=== PATIENT | male | born 1995 | race Caucasian/White ===

== ENCOUNTER 2022-05-03 16:00 | Outpatient (RCR) | payer OTHER, SELFPAY ==
--- NOTE | 2022-02-05 14:33 | HP.PTEVAL ---
Patient's Visit Information BHUPENDRA BANGURA is a 26 year old M referred to Physical Therapy by Dr. Jodie Garcia DO with a diagnosis of R Achilles tendon repair 12/09/21. Date of Evaluation: 02/05/22 Physical Therapist: Arnie Acevedo, PT, ATC - Visit Plan Frequency: 2-3x /Week Duration: 4-6 Weeks Plan: R Achilles stretching, strengthening, DTR, stick rollout, bike, and HEP - Subjective DOS: 12/09/21. Pt reports he tore his R Achilles tendon while playing rugby. Pt reports he tore his Achilles 5 weeks prior to the DOS, but had to wait until then to have the procedure performed. Pt reports he was NWBing for 2 weeks after the surgery, but has been walking in a cam boot ever since. 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 Pt reports he only missed 2 weeks of work after the surgery. Pt reports n stairs at home, but notes he has to ascend them one stair at a time. Pt denies sleep difficulty at this time. Pt reports no tingling or numbness in R LE at this time. Pt notes he runs frequently and works out, and hopes to be able to return to that as soon as possible. R achilles pain is 0/10 while sitting at rest, increases to 7/10 at worst (when he was sitting on his couch) - Pain R achilles Pain Intensity (Out of 10): 0 Pain Intensity Range: 7 - Objective Neuro: B LE sensation is WNL to light touch. Girth: L ankle 57 cm, R ankle 62 cm. Observation: Incision is healed. Mild swelling still present. No signs of infection at this time. MMT: B ankles are grossly 5/5 throughout with the exception of R ankle PF 3/5 and painful. ROM: L ankle DF= 20, PF= 50 degrees: R ankle DF= 0, PF= 50 - Balance/Special Test Scores Lower Extremity Functional Score: 36 - Goals Goal 1:: Decrease R Achilles pain x 50% to aid with tolerance for ambulation Goal Time Frame: 4-6 Weeks Goal 2:: Increase R ankle DF ROM x 10 degrees to aid with restoring a more normalized gait pattern Goal Time Frame: 4-6 Weeks Goal 3:: Increase R ankle strength x 1 grade to aid with stair negotiation Goal Time Frame: 4-6 Weeks Goal 4:: I with HEP Goal Time Frame: 4-6 Weeks - Rehabilitation Potential Physical Therapy Diagnosis: Pt has R ankle pain, weakness, and limited ROM secondary to R achilles tendon rupture Rehabilitation Potential: Good - Anticipated Interventions Patient/Client Instruction: Educate patient on: Condition, Plan of Care For the Purpose of:: To improve self management Therapeutic Exercise to Include: Strength training, Endurance training, Flexibilty training, Active ROM, Dynamic Lumbar Stabilization For the Purpose of:: To decrease pain, To increase ROM, To improve muscle performance and motor function Cryotherapy (ice pack, ice massage): Yes For the Purpose of:: To decrease pain Thank you for the opportunity to evaluate your patient. For Medicare and Medicare HMO plans, please review the plan of care and approve it. It will need to be FAXED BACK to us at [phone] for Medicare purposes. For Medicare only, by signing this I certify the plan of care. Please let me know if there are questions or concerns regarding this plan of care. Physician Signature: Date:
--- NOTE | 2022-03-01 16:59 | HP.PTREVAL ---
Dr. Jodie Garcia, DO, It has been my pleasure to treat BHUPENDRA BANGURA over the last 7 visits for R Achilles tendon repair 01/09/22. Please see the progress note below for an update on the physical therapy plan of care! Subjective: Pt reports was pleased with progress at this time. Pt feels like he is improving but still lacks functional strength and ROM Objective/Function: R achilles pain ranges from 0-2/10. R ankle DF ROM is 20 degrees. R ankle MMT: PF and inv= 4-5, ever= 4/5, DF 5/5. Pt is progressing well toward Rx goals but would benefit from further strengthening at this time Plan Plan: R Achilles stretching, strengthening, DTR, stick rollout, bike, and HEP Balance/Gait/Functional tests - Balance/Special Test Scores Lower Extremity Functional Score: 45 Goals Goal 1:: Decrease R Achilles pain x 50% to aid with tolerance for ambulation Goal Time Frame: 4-6 Weeks Goal Progress: Goal Met Goal 2:: Increase R ankle DF ROM x 10 degrees to aid with restoring a more normalized gait pattern Goal Time Frame: 4-6 Weeks Goal Progress: Goal Met Goal 3:: Increase R ankle strength x 1 grade to aid with stair negotiation Goal Time Frame: 4-6 Weeks Goal Progress: Progressing Goal 4:: I with HEP Goal Time Frame: 4-6 Weeks Goal Progress: Progressing Goal 5:: Pt will ambulate 340 feet with a normal gait pattern to aid with community ambulation Goal Progress: New goal Anticipated Interventions Patient/Client Instruction: Educate patient on: Condition, Plan of Care For the Purpose of:: To improve self management Therapeutic Exercise to Include: Strength training, Endurance training, Flexibilty training, Active ROM, Dynamic Lumbar Stabilization For the Purpose of:: To decrease pain, To increase ROM, To improve muscle performance and motor function Cryotherapy (ice pack, ice massage): Yes For the Purpose of:: To decrease pain Please do not hesitate to contact me at [phone] by phone or if you have questions or concerns regarding this new plan of care! Sincerely, Arnie Acevedo, PT, ATC
--- NOTE | 2022-04-03 15:33 | HP.PTREVAL ---
Dr. Jodie Garcia, DO, It has been my pleasure to treat BHUPENDRA OZUNA BANGURA over the last 16 visits for Right Achilles tendon repair 01/09/22. Please see the progress note below for an update on the physical therapy plan of care! Subjective: Pt reports he is still unable to run or jog at this time Objective/Function: R achilles pain ranges from 0-2/10. MMT: R ankle PF and inv= 4-/5, DF and ever= 5/5. Pt is able to ambulate 340' but still displays a limp of R LE and a lack of toe off on RLE while leaving stance phase. Plan Plan: Cont with strengthening of R achilles. Begin transition to functional ex's as panfilo Balance/Gait/Functional tests - Balance/Special Test Scores Lower Extremity Functional Score: 45 Goals Goal 1:: Decrease R Achilles pain x 50% to aid with tolerance for ambulation Goal Time Frame: 4-6 Weeks Goal Progress: Goal Met Goal 2:: Increase R ankle DF ROM x 10 degrees to aid with restoring a more normalized gait pattern Goal Time Frame: 4-6 Weeks Goal Progress: Goal Met Goal 3:: Increase R ankle strength x 1 grade to aid with stair negotiation Goal Time Frame: 4-6 Weeks Goal Progress: Progressing Goal 4:: I with HEP Goal Time Frame: 4-6 Weeks Goal Progress: Goal Met Goal 5:: Pt will ambulate 340 feet with a normal gait pattern to aid with community ambulation Goal Progress: New goal Anticipated Interventions Patient/Client Instruction: Educate patient on: Condition, Plan of Care For the Purpose of:: To improve self management Therapeutic Exercise to Include: Strength training, Endurance training, Flexibilty training, Active ROM, Dynamic Lumbar Stabilization For the Purpose of:: To decrease pain, To increase ROM, To improve muscle performance and motor function Cryotherapy (ice pack, ice massage): Yes For the Purpose of:: To decrease pain Please do not hesitate to contact me at [phone] by phone or if you have questions or concerns regarding this new plan of care! Sincerely, Arnie Acevedo, PT, ATC
--- NOTE | 2022-05-03 16:33 | HP.PTDCSUM ---
It has been my pleasure to treat BHUPENDRA BANGURA referred by Dr. Jodie Garcia DO, with the diagnosis of Right Achilles tendon repair 01/09/22 for a total of 23 visit(s). Discharge Date: Please see the following information for a summary of their discharge status. Subjective: I feel a lot better today R achilles Pain Intensity (Out of 10): 0 % Improvement: 70 Objective/Function: L achilles pain ranges from 0-2/10. R ankle MMT: DF= 50#F, PF= 51 #F. R ankle ROM: 20 degrees. Pt is I with HEP. Rx goals achieved. Goal 1:: Decrease R Achilles pain x 50% to aid with tolerance for ambulation Goal Progress: Goal Met Goal 2:: Increase R ankle DF ROM x 10 degrees to aid with restoring a more normalized gait pattern Goal Progress: Goal Met Goal 3:: Increase R ankle strength x 1 grade to aid with stair negotiation Goal Progress: Goal Met Goal 4:: I with HEP Goal Progress: Goal Met Goal 5:: Pt will ambulate 340 feet with a normal gait pattern to aid with community ambulation Goal Progress: New goal Plan: Discharge to HEP If there are questions or concerns regarding this patient's physical therapy, please feel free to call me at [phone]. Thank you for the referral of this patient. Sincerely, Arnie Acevedo, PT, ATC Balance/Gait/Functional tests - Balance/Special Test Scores Lower Extremity Functional Score: 64
== END 2022-05-03 19:00 | disposition home or self-care (01) ==
LOC: PT 16:00
PROVIDERS: PCP Pediatrics; Referring Provider Orthopaedic Surgery; Visit Provider Orthopaedic Surgery
DX: S86.011D Strain of right Achilles tendon, subsequent encounter (principal); X58.XXXD Exposure to other specified factors, subsequent encounter
CPT/HCPCS: 97110; 97140; 97161; 97164